=== PATIENT | male | born 1995 ===

== ENCOUNTER 2017-05-31 19:14 | Emergency (ER) | payer SELFPAY ==
[2017-05-31] MEDS ORDERED: Naproxen 550 mg Tab PO STA (20:04)
[2017-05-31] MEDS ORDERED: Bacitracin 500 Units/gm Oint Foilpak UD TOP ONE (20:05)
[2017-05-31] MEDS ORDERED: Naproxen 550 mg Tab PO ONE (20:13)
[2017-05-31 21:03] VITALS: BP 145/80; PULSE 96; RESP 20; TEMP 98; O2SAT 98
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
--- NOTE | 2017-06-01 09:16 | RAD ---
PROCEDURE: Radiographs of the left tibia and fibula. HISTORY: Trauma COMPARISON: None available. TECHNIQUE: Frontal and lateral views obtained. FINDINGS: BONES: No acute fracture or destructive lesion. Bone alignment and mineralization are normal. JOINT SPACES: Unremarkable. OTHER FINDINGS: None. IMPRESSION: No acute displaced fracture.
== END 2017-05-31 21:01 | disposition home or self-care (01) ==
LOC: C.ER 19:14
DX: S80.12XA Contusion of left lower leg, initial encounter (principal); V28.4XXA Motorcycle driver injured in noncollision transport accident in traffic accident, initial encounter; Y93.I9 Activity, other involving external motion; Y92.410 Unspecified street and highway as the place of occurrence of the external cause